=== PATIENT | male | born 2000 | race Caucasian/White ===

== ENCOUNTER 2025-09-08 09:55 | Emergency (ER) | payer OTHER ==
[~2025-09-08] VITALS: Ht 167.6 cm; Wt 95.5 kg
[2025-09-08 10:05] VITALS: BP 132/62; TEMP 97.4; O2SAT 98
== END 2025-09-08 11:32 | disposition home or self-care (01) ==
LOC: M ED 09:55
DX: S93.401A Sprain of unspecified ligament of right ankle, initial encounter (principal); X50.0XXA Overexertion from strenuous movement or load, initial encounter; Y92.89 Other specified places as the place of occurrence of the external cause; Y99.1 Military activity; Y93.02 Activity, running